=== PATIENT | male | born 1965 | race Caucasian/White ===

== ENCOUNTER 2023-08-26 19:54 | Inpatient (IN) | payer MEDICAID ==
[~2023-08-26] VITALS: Ht 180.3 cm; Wt 81.6 kg
[2023-08-26 20:25] VITALS: BP_SYST 149; PULSE 92; RESP 16; TEMP 98.9; O2SAT 100
[2023-08-26 22:07] LABS: BASOPHILS % (AUTO) 0.6 % (0.0-2.0); EOSINOPHILS # (AUTO) 0.1 K/uL (0.0-0.4); EOSINOPHILS % (AUTO) 1.2 % (0.0-4.0); HEMATOCRIT 34.5 % (36-54); HEMOGLOBIN 11.4 g/dL (14.0-18.0); LYMPHOCYTES # (AUTO) 0.8 K/uL (1.0-5.5); LYMPHOCYTES % (AUTO) 15.6 % (20.5-51.5); MEAN CORPUSCULAR HEMOGLOBIN 30 pg (27-31); MEAN CORPUSCULAR HGB CONC 33 % (32-36); MEAN CORPUSCULAR VOLUME 89 fL (79.0-98.0); MONOCYTES # (AUTO) 0.4 K/uL (0.0-1.0); MONOCYTES % (AUTO) 8.5 % (1.7-9.3); NEUTROPHILS # (AUTO) 3.7 K/uL (1.8-7.7); NEUTROPHILS % (AUTO) 74.1 % (40.0-70.0); PLATELET COUNT (AUTO) 219 K/uL (130-430); RED BLOOD CELL COUNT(AUTO) 3.86 MIL/uL (4.2-6.2); RED CELL DISTRIBUTION WIDTH 14.7 % (9.0-15.0); WHITE BLOOD COUNT (AUTO) 4.9 K/uL (4.8-10.8)
[2023-08-26 22:19] LABS: ANION GAP 6 (5-15); CALCIUM 8.1 mg/dL (8.4-11.0); CARBON DIOXIDE 29 mmol/L (23-29); CHLORIDE 104 mmol/L (98-107); CREATININE 1.17 mg/dL (0.55-1.30); GFR AFRICAN AMERICAN 83 mL/min (>90); GFR NON AFRICAN-AMERICAN 69 mL/min (>90); GLUCOSE 110 mg/dL (74-106); SODIUM SERUM 139 mmol/L (136-145); UREA NITROGEN, BLOOD 17 mg/dL (8-21)
[2023-08-26 22:21] LABS: PROTHROMBIN TIME 10.7 SECS (9.5-12.5)
[2023-08-26 22:26] LABS: ALANINE AMINOTRANSFERASE 29 U/L (12-78); ALBUMIN 3.5 g/dL (3.4-4.8); ASPARTATE AMINOTRANSFERASE 27 U/L (10-37); CHOLESTEROL 186 mg/dL (<200); HDL CHOLESTEROL 52 mg/dL (>45); TOTAL BILIRUBIN 0.8 mg/dL (0.0-1.0); TOTAL PROTEIN, SERUM 6.9 g/dL (6.4-8.3); TRIGLYCERIDES 181 mg/dL (30-150)
[2023-08-26] MEDS ORDERED: CLOPIDOGREL BISULFATE 75 MG TABLET PO ONE (22:30)
[2023-08-26] MEDS ORDERED: ASPIRIN 325 MG TABLET PO ONE (22:30)
[2023-08-26 23:35] LABS: BILIRUBIN,URINE NEGATIVE (NEGATIVE); BLOOD, URINE NEGATIVE (NEGATIVE); CLARITY/URINE CLEAR (CLEAR); COLOR,URINE YELLOW (YELLOW); GLUCOSE,URINE NEGATIVE (NEGATIVE); KETONES,URINE NEGATIVE (NEGATIVE); LEUKOCYTE ESTERASE ,URINE NEGATIVE (NEGATIVE); NITRITE, URINE NEGATIVE (NEGATIVE); PROTEIN URINE NEGATIVE (NEGATIVE); UROBILINOGEN,URINE 0.2 (0.2-1.0)
[2023-08-27 00:06] LABS: BARBITURATE, URINE NEGATIVE (NEG <=200); BENZODIAZEPINE, URINE NEGATIVE (NEG <=150); CANNABINOID, URINE NEGATIVE (NEG <=50); COCAINE, URINE NEGATIVE (NEG <=150); METHAMPHETAMINES SCREEN,URINE NEGATIVE (NEG <=500); OPIATE, URINE NEGATIVE (NEG <=100); PHENCYCLIDINE SCREEN,URINE NEGATIVE (NEG <=25); UR TRICYCLIC ANTIDEPRESSANTS NEGATIVE (NEG <=300); URINE AMPHETAMINE NEGATIVE (NEG <=500); URINE METHADONE NEGATIVE (NEG <=200); URINE OXYCODONE SCREEN NEGATIVE (NEG <=100); URINE PROPOXYPHENE SCREEN NEGATIVE (NEG <=300)
[2023-08-27] MEDS ORDERED: ONDANSETRON HCL 4 MG/2 ML VIAL IVP PRN (05:00)
[2023-08-27] MEDS ORDERED: LORazepam 2 MG/ML VIAL IVP PRN (05:00)
[2023-08-27] MEDS ORDERED: HYDROcodone/ACETAMIN 5-325 MG TAB (NORCO/ VICODIN) PO PRN (05:00)
[2023-08-27] MEDS ORDERED: NALOXONE HCL 0.4 MG/ML AMP (NARCAN) IVP PRN ×2 (05:00)
[2023-08-27] MEDS ORDERED: ACETAMINOPHEN 325 MG TABLET PO PRN (05:00)
[2023-08-27] MEDS ORDERED: HYDROcodone/ACETAMIN 10-325 MG TAB PO PRN (05:00)
[2023-08-27] MEDS: NORMAL SALINE 5 ML DISP.SYRIN IVF SCH ×3 (06:22→22:53)
[2023-08-27] MEDS: CLOPIDOGREL BISULFATE 75 MG TABLET PO SCH (08:57)
[2023-08-27] MEDS: ASPIRIN 81 MG TABLET(ECOTRIN) PO SCH (08:57)
[2023-08-27 13:40] VITALS: BP_SYST 137; PULSE 80; RESP 14; TEMP 97.5; O2SAT 99
[2023-08-27 16:00] VITALS: BP_SYST 123; PULSE 75; RESP 18; TEMP 97.3; O2SAT 98
[2023-08-27 20:00] VITALS: BP_SYST 131; PULSE 88; RESP 18; TEMP 97.5; O2SAT 99
[2023-08-27] MEDS ORDERED: SIMVASTATIN 20 MG TABLET PO SCH (21:00)
[2023-08-28 00:56] VITALS: BP_SYST 121; PULSE 73; RESP 16; TEMP 97.7; O2SAT 99
[2023-08-28] MEDS: NORMAL SALINE 5 ML DISP.SYRIN IVF SCH (06:14)
[2023-08-28 06:23] LABS: HEMATOCRIT 33.6 % (36-54); HEMOGLOBIN 11.2 g/dL (14.0-18.0); MEAN CORPUSCULAR HEMOGLOBIN 30 pg (27-31); MEAN CORPUSCULAR HGB CONC 33 % (32-36); MEAN CORPUSCULAR VOLUME 89 fL (79.0-98.0); PLATELET COUNT (AUTO) 190 K/uL (130-430); RED BLOOD CELL COUNT(AUTO) 3.77 MIL/uL (4.2-6.2); RED CELL DISTRIBUTION WIDTH 14.8 % (9.0-15.0); WHITE BLOOD COUNT (AUTO) 2.7 K/uL (4.8-10.8)
[2023-08-28 06:44] LABS: CALCIUM 7.8 mg/dL (8.4-11.0); CREATININE 1.06 mg/dL (0.55-1.30); POTASSIUM 3.6 mmol/L (3.5-5.1)
[2023-08-28 08:25] VITALS: BP_SYST 125; PULSE 71; RESP 16; TEMP 98.1; O2SAT 98
[2023-08-28] MEDS: CLOPIDOGREL BISULFATE 75 MG TABLET PO SCH (10:02)
[2023-08-28] MEDS: ASPIRIN 81 MG TABLET(ECOTRIN) PO SCH (10:02)
[2023-08-28] MEDS ORDERED: ASPI-1393 PO (11:24)
[2023-08-28] MEDS ORDERED: SIMV-43 PO (11:24)
[2023-08-28] MEDS ORDERED: CLOP75TA32 PO (11:24)
[2023-08-28 13:10] VITALS: BP_SYST 127; PULSE 77; RESP 16; TEMP 98.1; O2SAT 97
== END 2023-08-28 13:30 | disposition home or self-care (01) | DRG 47 ==
LOC: SED 19:54 → STU 22:49
PROVIDERS: ADMIT Preventive Medicine Preventive Medicine/Occupational Environmental Medicine; ATTEND Preventive Medicine Preventive Medicine/Occupational Environmental Medicine
DX: G45.9 Transient cerebral ischemic attack, unspecified (principal); D64.9 Anemia, unspecified; T14.8XXA Other injury of unspecified body region, initial encounter; E78.2 Mixed hyperlipidemia; D72.819 Decreased white blood cell count, unspecified; R73.9 Hyperglycemia, unspecified; Z92.3 Personal history of irradiation; Z85.831 Personal history of malignant neoplasm of soft tissue
CPT/HCPCS: 36415; 70450-TC; 70496; 70498; 71045; 76376; 80048; 80053; 80061; 80307; 81003; 82962; 83037; 84484; 85025; 85610-TC; 85730-TC; 86886; 86900; 86901; 93005; 93306; 97116-GP; 97163-GP; 99291; G0378; J2060